=== PATIENT | female | born 2000 | race Caucasian/White ===

== ENCOUNTER 2020-07-29 13:43 | Emergency (ER) | payer OTHER ==
[~2020-07-29] VITALS: Ht 167.6 cm; Wt 87.3 kg
[2020-07-29] MEDS ORDERED: PRENTAB53 PO (13:51)
[2020-07-29] MEDS ORDERED: ACETAMINOPHEN 325 MG TAB PO ONE (17:25)
[2020-07-29 17:50] VITALS: BP 99/54
== END 2020-07-29 17:59 | disposition home or self-care (01) ==
LOC: M ED 13:43
DX: O26.893 Other specified pregnancy related conditions, third trimester (principal); M25.551 Pain in right hip; Z3A.32 32 weeks gestation of pregnancy

== ENCOUNTER 2020-09-30 20:46 | Inpatient (IN) | payer OTHER ==
[~2020-09-30] VITALS: Ht 167.6 cm; Wt 96.6 kg
[~2020-09-30 20:46] MED LIST: PRENTAB53 PO
[2020-09-30 21:17] VITALS: BP 194/95
[2020-09-30 21:29] VITALS: BP 150/73
[2020-09-30] MEDS ORDERED: OXYTOCIN DRIP 30 UNITS in IV 1 EA IV PRN (21:30)
[2020-09-30] MEDS ORDERED: LIDOCAINE 1% MDV 20ML VIAL INFIL PRN (21:30)
--- NOTE | 2020-09-30 21:55 | HPEPDOC ---
Obstetrical History & Physical General Date of Admission Sep 30, 2020 at 20:46 History of Present Illness 20 yo at 41+0 weeks gestation by LMP of [id number] c/w 9+0 week US presents to L&D for IOL for late term . Ms. Turcios reports feeling well and has no complaints. Today she denies any vaginal bleeding, leakage of fluid, or severe contractions. She endorses regular movement. Chief Complaint: Induction of labor Information Provided By: Patient Age: 20 : 1 Term: 0 Pre-term: 0 Abortions: 0 Livin Care Care: Good Care Dating Final EDC: Sep 23, 2020 Final EDC for Daily Update: Sep 23, 2020 Final EDC by: LMP (LMP of [id number] c/w 9+0 week US on [id number] set ARIS of [id number]) Antepartum Course Diagnos(e)s Uncomplicated Past Medical History Past Obstetrical History : Past Obstetrical History: [employer] History: No pertinent history Past Medical History Medical History Denies Surgical History: Tooth extraction, Other (ear tubes) Family History Significant Family History: No pertinent family hx Social History Marital Status: Family situation: Spouse/partner home Psychosocial History: No pertinent psych hx * Smoker: non-smoker Alcohol: Denies Drugs: denies Imunizations Tdap status: current Influenza Status: current Allergies Coded Allergies: No Known Allergies (Unverified , 07/29/20) Medications Scheduled Vit,Calc76/Iron/Folic (Prenatabs Rx Tablet) 1 Each Tablet, 1 TAB PO DAILY Physical Examination Physical Examination GENERAL: Alert and oriented times three. ABDOMEN: Gravid and non-tender to touch. FETUS: Is vertex (VTX) by sterile vaginal examination (SVE) EXTREMITIES: No edema. Laboratory Data 24H LABS Laboratory Tests 2 09/30/20 21:02: Serology Scanned Report Hepatitis B Testing Urine Culture: No Growth Pertinent Laboratoy Data Blood Type: A+ RBC Antibody Screen: Negative HIV: Negative Hepatitis B: Negative Hepatitis C: Unknown Rapid Plasma Reagin: Nonreactive Rubella: Immune Varicella: Immune Chlamydia/Gonorrhea: Negative Group B Streptococcus: Negative Quad Screen Test: Unknown Cystic Fibrosis: Negative Glucose Tolerance Test: 75 Anatomy Ultrasound Placenta Location: Posterior Normal Anatomy: Yes Placenta Previa: No Steroid Therapy Steroid Therapy: No Vaginal Examination Dilation: None Effacement: 50% Station: -3 Cervical Consistency: Medium Cervical Position: Middle Presentation: Cephalic presentation Position: Vertex (occiput) Assessment Heart Rate (FHR): 150 Variability: Moderate Accelerations: Positive Decelerations: None Tocometer Contractions: No Assessment/Plan Assessment 20 yo at 41+0 weeks gestation presents to L&D for IOL for late term . Plan Admit. Apply IV fluids. Labs per L&D protocol. GBS negative. Cervix unfavorable. Will start IOL with cytotec. Regular diet. Candidate for IV analgesia and/or epidural as desired. Anticipate . Labor and Delivery Counseling Vaginal / Operative vaginal delivery / C section counseling We will deliver your baby through the vagina with possible assistance of forceps or vacuum device if needed for maternal or indications. Forceps and vacuum are devices that can assist with vaginal delivery when normal pushing efforts cannot achieve delivery on their own or when delivery is needed in an emergency for baby's well-being. Medications may be required to induce or augment (help) your labor in order to achieve a vaginal delivery. An episiotomy may be required to help your baby to delivery vaginally. You may also require repair of any lac erations or tears of your vagina or vulva that are caused by delivery. In some cases, emergencies can occur that require an emergency section delivery so quickly that there may not be enough time to stop and complete consent forms for section. Understand that if this occurs, your providers will discuss the need for a section with you before they proceed with surgery. section is the delivery of your baby through an incision in your abdomen. In some situations, section may be safer to mom and baby than continuing labor and is only performed when clinically indicated. Risks of vaginal delivery include but are not limited to: Bleeding, infection, injury to the vagina, pelvic structures, injury to baby, damage to the uterus, reactions to anesthesia, uterine rupture, risk of hysterectomy for life threatening bleeding, or . Medications used to induce or augment labor may increase your risk for infection, uterine tachysystole, uterine rupture, heart rate abnormalities, need for emergency delivery or possible hysterectomy, and hemorrhage. Additional risks for use of forceps and vacuum include: increased risk of perineal and vaginal lacerations, risk of urinary or bowel incontinence, increased risk of injury to baby with bruising, scratches, hematomas on the head, or intracranial bleeding. Ms. Turcios appears to understand these risks and elects to proceed with IOL. She also consents to a blood transfusion if necessary. All patient and questions answered. Vicki Grande DO, VICKI ZACARIAS DO Sep 30, 2020 21:55
[2020-09-30] MEDS: miSOPROStol 50MCG 1/2 TABLET PO SCH (22:19)
[2020-09-30 22:20] LABS: HEMATOCRIT 36.3 % (36.0-47.0); HEMOGLOBIN 12.4 g/dl (12.0-15.5); MEAN CORPUSCULAR HEMOGLOBIN 30.6 pg (27.0-33.0); MEAN CORPUSCULAR HGB CONC 34.2 g/dl (32.0-36.5); MEAN CORPUSCULAR VOLUME 89.6 fl (80.0-96.0); PLATELET COUNT, AUTOMATED 220 10^3/uL (150-450); RED BLOOD COUNT 4.05 10^6/uL (4.00-5.40); WHITE BLOOD COUNT 11.1 10^3/uL (4.0-10.0)
[2020-09-30 22:43] LABS: ALT/SGPT 23 U/L (12-78); BILIRUBIN,TOTAL 0.2 MG/DL (0.2-1.0); CREATININE FOR GFR 0.63 MG/DL (0.55-1.30); GLOMERULAR FILTRATION RATE > 60.0 (>60); LDH LACTATE DEHYDROGENASE 194 U/L (84-246); URIC ACID 5.5 MG/DL (2.6-6.0)
[2020-10-01] VITALS (18 sets, daily range): BP systolic 97–134; BP diastolic 53–79
[2020-10-01] MEDS: miSOPROStol 50MCG 1/2 TABLET PO SCH ×3 (02:21→09:59)
[2020-10-01] MEDS ORDERED: ONDANSETRON 4MG/2ML VIAL IV ONE (02:35)
[2020-10-01] MEDS ORDERED: ONDANSETRON 4MG/2ML VIAL As Ordered ONE (02:36)
[2020-10-01] MEDS: BUTORPHANOL 2 MG/ML INJ (J0595) IV PRN ×2 (12:38→18:43)
[2020-10-01] MEDS: PROMETHAZINE INJ 25 MG/ML VIAL (J2550) IV PRN ×2 (12:38→18:43)
--- NOTE | 2020-10-01 15:30 | IPNPDOC ---
Obstetrical Progress Note Date of Service Oct 01, 2020 Subjective *Late entry note from 1200 today* Pt feeling cramping pain with cytotec, otherwise doing well and without complaint. Objective Vital Signs Date Time Temp Pulse Resp B/P (MAP) Pulse Ox O2 Delivery O2 Flow Rate FiO2 10/01/20 12:38 18 Room Air 10/01/20 12:08 98.1 71 134/79 (97) Assessment Heart Rate (FHR): 130 Variability: Moderate Accelerations: Positive Decelerations: None Heart Rate Tracing: Category I Tocometer Contractions: Yes Frequency: regular, every 1-3 min. Sterile Vaginal Examination Dilation: 1cm Effacement (%): 30% Station: -3 Cervical Consistency: Medium Cervical Position: Posterior Postion/Presentation: Cephalic presentation Assessment and Plan Anticipate: Vaginal Delivery Additional Comments Pt admitted for IOL for post-dates at 41wks. S/p 4 doses of cytotec (last at 0955 this am). SVE 1/T/H and DLFB placed at 1200. Will monitor and add pitocin as second agent after patient has had opportunity to eat and if not stefanie on her own. Pt in agreement with plan. SAKINA MORTON M.D. Oct 01, 2020 15:30
[2020-10-01] MEDS ORDERED: FENTANYL 2MCG/ML ROPIVACAINE 0.2% IN 0.9% NACL 100ML IVBAG As Ordered ONE (22:36)
[2020-10-02] VITALS (34 sets, daily range): BP systolic 83–139; BP diastolic 48–85
[2020-10-02] MEDS ORDERED: OXYTOCIN DRIP 30 UNITS in IV 1 EA IV SCH (00:25)
[2020-10-02] MEDS ORDERED: diphenhydrAMINE 50MG/ML VIAL (J1200) IV PRN (00:30)
[2020-10-02] MEDS ORDERED: REFRIGERATOR IV KEYS XX PRN (00:30)
[2020-10-02] MEDS ORDERED: NALOXONE INJ 0.4MG/1ML VIAL (J2310 PER 1MG) IV PRN (00:30)
[2020-10-02] MEDS ORDERED: EPIDURAL/PCA KEYS XX PRN (00:30)
[2020-10-02] MEDS: FENTANYL/ROPIVACAINE/NACL BAG 100 ML EPIDURAL SCH ×2 (00:30→08:04)
[2020-10-02] MEDS ORDERED: EPIDURAL COMMENT XX SCH (00:30)
[2020-10-02] MEDS ORDERED: ONDANSETRON 4MG/2ML VIAL IV PRN (00:30)
[2020-10-02] MEDS ORDERED: LACTATED RINGER'S 1000 ML IV PRN (00:30)
[2020-10-02] MEDS: ePHEDrine SULFATE 25 MG/5 ML(5MG/ML) SYRINGE IV PRN ×3 (00:35→00:43)
[2020-10-02] MEDS: LR 1,000 ML IV SCH ×4 (00:37→06:32)
--- NOTE | 2020-10-02 02:01 | IPNPDOC ---
Obstetrical Progress Note Date of Service Oct 02, 2020 Objective Vital Signs Date Time Temp Pulse Resp B/P (MAP) Pulse Ox O2 Delivery O2 Flow Rate FiO2 10/02/20 00:46 97.9 10/01/20 23:55 116 18 97/57 (70) 10/01/20 20:33 Room Air Assessment and Plan Additional Comments CAT I NST, reactive. SVE 5/75/-3. Patient DLFB came out and she SROMed at around 2200. Pitocin was started around 0000. Continue IOL with pitocin reassess as clinically indicated. HOWIE TORRE DO Oct 02, 2020 02:01
[2020-10-02] MEDS ORDERED: OXYTOCIN INJ 10 UNITS/ML VIAL (J2590) As Ordered ONE (07:03)
[2020-10-02] MEDS ORDERED: TERBUTALINE SULFATE 1 MG/ML VIAL (J3105) As Ordered ONE (07:29)
[2020-10-02] MEDS ORDERED: TERBUTALINE SULFATE 1 MG/ML VIAL (J3105) SC STA (07:43)
--- NOTE | 2020-10-02 07:46 | IPNPDOC ---
Obstetrical Progress Note Date of Service Oct 02, 2020 Objective Vital Signs Date Time Temp Pulse Resp B/P (MAP) Pulse Ox O2 Delivery O2 Flow Rate FiO2 10/02/20 06:21 98.8 90 18 98/50 (66) 10/01/20 20:33 Room Air Sterile Vaginal Examination Dilation: 7 cm Effacement (%): 90% Station: -1 Cervical Consistency: Soft Cervical Position: Middle Postion/Presentation: Cephalic presentation (by exam) Assessment and Plan Additional Comments To room for routine assessment. CAT II NST for intermittent late decelerations but overall reassuring as good variability. SVE / which is unchanged from RN exam at 0500. IUPC was placed. A few minutes later a deceleration occurred lasting approx 10 minutes with gradual return to baseline and now she is 150bpm with moderate variability. Pitocin was discontinued. An FSE was placed and terbutaline was administered during this time. Will continue to monitor and restart pitocin when tracing remains reassuring. HOWIE TORRE DO Oct 02, 2020 07:46
[2020-10-02] MEDS: miSOPROStol 50MCG 1/2 TABLET PO SCH (07:59)
[2020-10-02] MEDS ORDERED: ACETAMINOPHEN TAB 650MG DOSE (2X325MG) PO PRN (09:05)
--- NOTE | 2020-10-02 09:13 | IPNPDOC ---
Obstetrical Progress Note Date of Service Oct 02, 2020 Subjective To room for routine assessment, pt reporting increased pressure. CAT II NST for tachycardia, pt also now with temp of 100.3. SVE unchanged at /1. Will initiate abx for suspected IAI. Pitocin restarted to continue induction, discussed with patient that if baby does not tolerate contractions with restart of pitocin, would recommend proceeding with delivery via . Patient voiced understanding. Objective Vital Signs Date Time Temp Pulse Resp B/P (MAP) Pulse Ox O2 Delivery O2 Flow Rate FiO2 10/02/20 08:49 100.3 107 121/66 (84) 10/02/20 07:00 16 10/01/20 20:33 Room Air SAKINA MORTON M.D. Oct 02, 2020 09:13
[2020-10-02] MEDS: AMPICILLIN SOD 2 GM in D5W MINI-BAG PLUS 100 ML IV SCH ×2 (09:26→16:37)
[2020-10-02] MEDS ORDERED: GENTAMICIN 400 MG in D5W 100 ML IV ONE (10:30)
[2020-10-02 14:35] LABS: CORD GAS ABE V -8.8; CORD GAS HCO3 V 18.6 MEQ/L; CORD GAS O2 SAT V 82.1 %; CORD GAS PH V 7.233 UNITS; CORD GAS PO2 V 42.7 mmHg; CORD GAS SBC V 17.2 MEQ/L; CORD GAS TCO2 V 19.9 MEQ/L
[2020-10-02 14:37] LABS: CORD GAS HCO3 A 18.7 MEQ/L; CORD GAS O2 SAT A 59.1 %; CORD GAS PCO2 A 61.8 mmHg; CORD GAS PH A 7.098 UNITS; CORD GAS PO2 A 32.9 mmHg; CORD GAS SBC A 14.5 MEQ/L; CORD GAS TCO2 A 20.6 MEQ/L
[2020-10-02] MEDS ORDERED: DIBUCAINE 1% OINTMENT 30GM TOP PRN (14:55)
[2020-10-02] MEDS ORDERED: MOM 30ML SUSPENSION UDC PO PRN (14:55)
[2020-10-02] MEDS ORDERED: IBUPROFEN 600MG TAB PO PRN (14:55)
[2020-10-02] MEDS ORDERED: RHOGAM 300 MCG (1500 IU) INJ (J2790) IM SCH (14:55)
[2020-10-02] MEDS ORDERED: METHYLERGONOVINE MALEATE 0.2 MG TAB PO PRN (14:55)
[2020-10-02] MEDS ORDERED: MEASLES,MUMPS,RUBELLA VACCINE INJ (MMR-II) (90707) SC SCH (14:55)
[2020-10-02] MEDS: IBUPROFEN 800 MG TAB PO PRN (15:23)
--- NOTE | 2020-10-02 15:55 | DNPDOC ---
[facility] [place] Delivery Note Delivery Note DATE OF DELIVERY: 10/02/2020 PREDELIVERY DIAGNOSIS: 41 2/7 weeks' gestation and labor. Intra-amniotic infection Non-reassuring heart tones POST DELIVERY DIAGNOSIS: Delivered. Second degree perineal laceratoin PROCEDURE: Vacuum assisted vaginal delivery. Repair of second degree perineal laceration CERTIFICATION AND SELECTION SPECIALIST: Dr. Morton ANESTHESIA: Epidural . ESTIMATED BLOOD LOSS: 400 mL. FINDINGS: 8 pound 0 ounce MALE , Score 7/9, nuchal cord times 1. Meconium noted at delivery DELIVERY SUMMARY: Patient is a 20-year-old 1 now para 1001 who was admitted to labor and delivery for induction of labor for post dates. Her intrapartum course was complicated by development of intra-amniotic infection for which she was started on antibiotics. She progressed to C/C/+1 and was allowed to push. FHT then became Cat 2 with deep variable decelerations into the 80's with pushing. She progressed to +2 station and was counseled on vacuum delivery vs. section. Risks discussed with patient, desired to proceed with vacuum delivery. Kiwi vacuum applied to head along sagittal suture 3cm anterior to the posterior fontanelle with careful attention to avoid maternal tissue. With each contraction, suction applied to the green and gently downward traction applied in conjunction with maternal pushing efforts. Suction released between each contraction. head brought to the perineum and vacuum removed. With good pushing effort, head delivered SUNNY. Meconium stain fluid noted at this time. Nuchal cord x1 noted and reduced at the perineum. Anterior shoulder delivered without difficulty followed by remainder of . noted to have poor tone, therefore cord clamped and cut and infant taken to warmer. Cord gases obtained. Placenta then delivered intact. Second degree perineal laceration noted and repaired in usual fashion with 3-0 vicryl rapide. Cytotec 1000mcg inserted [place] due to increased risk of hemorrhage with diagnosis of intra-amniotic infection. Will administer one additional dose of antibiotics post delivery, and continue to monitor closely. Good hemostasis noted. Mom and baby both doing well immediately . SAKINA MORTON M.D. Oct 02, 2020 15:55
[2020-10-02] MEDS: ACETAMINOPHEN TAB 650MG DOSE (2X325MG) PO PRN (21:29)
--- NOTE | 2020-10-03 04:09 | IPNPDOC ---
Progress Note Date of Service: Oct 03, 2020 Progress Note SUBJECT: Ms. Turcios is a 20-year-old 1 now Para 1001 status post uncomplicated vacuum assisted vaginal delivery at 41-2/7 weeks' at approximately 1500 hours on 10/02/20 of a 8 pound 0 ounce MALE , Score 7/9, nuchal cord times 1, doing well day # 1. Intrapartum course complicated by IAI, s/p antibiotics. Denies symptoms of fevers, chills or fundal tenderness. She had some difficulty with urination after epidural and is s/p straight cath with 950cc out. She is now voiding spontaneously. She has been ambulating, voiding spontaneously without issue and tolerating regular diet. Breast feeding without issue. Reports lochia is minimal. Declines anything for contraception. Baby still in NNICU secondary to IAI OBJECTIVE: VITAL SIGNS: Within normal limits, afebrile. Alert and oriented times three. Breath sounds clear to auscultation. Heart rate: Regular rate and rhythm, no murmurs, rubs or gallops. Abdomen: Fundus firm at U-2. Soft, NTTP. ASSESSMENT: 20-year-old 1 now Para 1001 status post uncomplicated vacuum assisted vaginal delivery at 41-2/7 weeks' at approximately 1500 hours on 10/02/20 of a 8 pound 0 ounce MALE , Score 7/9, nuchal cord times 1, doing well day # 1. Vitals within normal limits, afebrile, hemodynamically stable with no evidence of infection. PLAN: 1. Discharge to home on day 2 2. Tylenol and Motrin for pain. 3. Encourage breast feeding and ambulation. 4. Declines anything for contraception (natural family planning) 5. Routine PP visit in 6 weeks in clinic. 6. Discussed return precautions at length. VS, I&O, 24H, Fishbone Vital Signs/I&O Vital Signs Label Value Date Time Patient Temperature 99.1 degrees F 10/03/20 0616 Temperature Source Temporal 10/03/20 0616 Patient Temperature 99.0 degrees F 10/02/20 1721 Temperature Source Temporal 10/02/20 1721 Blood Pressure Assessment 129/62 (84) 10/02/20 1519 Source Automatic Cuff (NIBP) Pulse 112 10/02/20 1420 Pulse 71 10/02/20 1449 Pulse 60 10/02/20 1519 Pulse 61 10/02/20 1721 Pulse 71 10/03/20 0616 Blood Pressure Assessment 128/75 (92) 10/02/20 1420 Source Automatic Cuff (NIBP) Blood Pressure Assessment 113/57 (75) 10/02/20 1449 Source Automatic Cuff (NIBP) Blood Pressure Assessment 134/79 (97) 10/02/20 1721 Source Automatic Cuff (NIBP) Blood Pressure Assessment 133/72 (92) 10/03/20 0616 Source Automatic Cuff (NIBP) Bedside Pulse Oximetry 98 % 10/02/20 1721 Laboratory Data 24H LABS Laboratory Tests 2 10/02/20 14:27: Cord Arterial Blood pH 7.098, Cord Arterial Blood PCO2 61.8, Cord Arterial Blood PO2 32.9, Cord Arterial Blood HCO3 18.7, Cord Arterial Blood Total CO2 20.6, Cord Arterial Blood Base Excess -12.0, Cord Arterial Base Excess (Standard 14.5, Cord Arterial Bld Oxygen Saturation 59.1, Cord Venous Blood pH 7.233, Cord Venous Blood PCO2 45.0, Cord Venous Blood PO2 42.7, Cord Venous Blood HCO3 18.6, Cord Venous Blood Total CO2 19.9, Cord Venous Base Excess (Actual) -8.8, Cord Venous Base Excess (Standard) 17.2, Cord Venous Blood Oxygen Saturation 82.1 SAKINA MORTON M.D. Oct 03, 2020 04:09
[2020-10-03 06:16] VITALS: BP 133/72
[2020-10-03] MEDS: DOCUSATE SODIUM 100MG CAPSULE PO PRN (07:35)
[2020-10-03] MEDS: IBUPROFEN 800 MG TAB PO PRN ×2 (07:36→18:28)
[2020-10-03] MEDS: PRENATAL VITAMINS CHEWABLE TABLET PO SCH (07:36)
[2020-10-03] MEDS: ACETAMINOPHEN TAB 650MG DOSE (2X325MG) PO PRN ×2 (13:27→22:23)
[2020-10-03 18:04] VITALS: BP 122/80
[2020-10-04] MEDS: DOCUSATE SODIUM 100MG CAPSULE PO PRN (05:19)
[2020-10-04 05:55] VITALS: BP 126/85
[2020-10-04] MEDS: PRENATAL VITAMINS CHEWABLE TABLET PO SCH (07:56)
[2020-10-04] MEDS ORDERED: IBUP-1022 PO (08:54)
[2020-10-04] MEDS ORDERED: DOK1CAP7 PO (08:54)
--- NOTE | 2020-10-04 09:29 | DSES ---
DISCHARGE SUMMARY DATE OF ADMISSION: 09/30/2020 DATE OF DISCHARGE: 10/04/2020 BRIEF HISTORY: This lady is a 20-year-old 1 now para 1 admitted for induction of labor at 41 weeks of gestation, had a vacuum assisted male weighing 8 pounds, 0 ounces, Apgars of 7 and 9 at 1 and 5 minutes respectively, cord x1, meconium at delivery. Arterial pH 7.09, base excess -12.0, venous pH 7.23, base excess -8.8. She had a second degree perineal laceration which was repaired in the usual fashion. Her admitting hemoglobin was 12.4, hematocrit was 36.3 and platelets were 220,000. PHYSICAL EXAMINATION: Her vital signs on discharge: Blood pressure 126/85, respirations are 16, pulse is 61, temperature is 97.4. The rest of the examination is unremarkable. Normocephalic, atraumatic. Neck with full range of motion. Pupils equal and reactive to light. Distal pulses are symmetric. No evidence of DVT, PE or superficial phlebitis. Chest is clear bilaterally at bases. No wheezes or rhonchi. No CVA tenderness. Abdomen is soft. Four quadrant bowel sounds are noted. Uterus is 2 below. The perineum is healing and dry. No rashes, lesions or pruritus. No arthralgias, myalgia or complaint of joint pain. No complaint of cough, wheeze, shortness of breath or dyspnea on exertion. No nausea or vomiting. No urgency or frequency. She is voiding and passing gas. She is also breast-feeding. Plan of management is to pickling operator her medications at [facility], have a six week checkup at [facility] OB, all questions were answered, a 20 minute discussion. Patient was discharged improved.
[2020-10-04] MEDS: IBUPROFEN 800 MG TAB PO PRN (10:08)
== END 2020-10-04 10:35 | disposition home or self-care (01) | DRG 805 ==
LOC: M LDI 20:46 → M OBS 10-02 16:44
PROVIDERS: ADMIT Obstetrics & Gynecology; ATTEND Obstetrics & Gynecology
PROC: 10D07Z6 Extraction of Products of Conception, Vacuum, Via Natural or Artificial Opening (ICD-10-PCS; principal; 2020-09-30)
PROC: 0KQM0ZZ Repair Perineum Muscle, Open Approach (ICD-10-PCS; 2020-09-30)
PROC: 3E0P7GC Introduction of Other Therapeutic Substance into Female Reproductive, Via Natural or Artificial Opening (ICD-10-PCS; 2020-09-30)
DX: O48.0 Post-term pregnancy (principal); Z37.0 Single live birth; O41.1230 Chorioamnionitis, third trimester, not applicable or unspecified; Z3A.41 41 weeks gestation of pregnancy; O76 Abnormality in fetal heart rate and rhythm complicating labor and delivery; O70.1 Second degree perineal laceration during delivery; O69.81X0 Labor and delivery complicated by cord around neck, without compression, not applicable or unspecified; O77.0 Labor and delivery complicated by meconium in amniotic fluid

== ENCOUNTER 2020-10-09 19:38 | Emergency (ER) | payer OTHER ==
[~2020-10-09] VITALS: Ht 167.6 cm; Wt 88.8 kg
[~2020-10-09 19:38] MED LIST changes: +DOK1CAP4 PO; +IBUP-1022 PO
[2020-10-10 02:10] VITALS: BP 114/80
== END 2020-10-10 02:12 | disposition home or self-care (01) ==
LOC: M ED 19:38
DX: O99.893 Other specified diseases and conditions complicating puerperium (principal); R10.2 Pelvic and perineal pain